=== PATIENT | female | born 2000 | race Caucasian/White ===

== ENCOUNTER 2024-01-24 11:25 | Emergency (ER) | payer OTHER ==
[~2024-01-24] VITALS: Ht 165.1 cm; Wt 59.0 kg
[2024-01-24 11:37] VITALS: BP_SYST 132; PULSE 89; RESP 18; TEMP 97.2; O2SAT 99
[2024-01-24] MEDS: IBUPROFEN 800 MG TABLET PO ONE (12:31)
[2024-01-24] MEDS: HYDROcodone/ACETAMIN 10-325 MG TAB PO ONE (12:32)
[2024-01-24] MEDS ORDERED: IBUP-1969 PO (13:25)
[2024-01-24] MEDS ORDERED: HYDR-3927 PO (13:25)
[2024-01-24 14:00] VITALS: BP_SYST 116; PULSE 66; RESP 12; TEMP 97.9; O2SAT 99
== END 2024-01-24 13:51 | disposition home or self-care (01) ==
LOC: SED 11:25
DX: S52.592A Other fractures of lower end of left radius, initial encounter for closed fracture (principal); W01.0XXA Fall on same level from slipping, tripping and stumbling without subsequent striking against object, initial encounter; Y93.73 Activity, racquet and hand sports; Y92.89 Other specified places as the place of occurrence of the external cause; Y99.8 Other external cause status
CPT/HCPCS: 99283